=== PATIENT | female | born 1980 | race American Indian/Alaskan Native ===

== ENCOUNTER 2018-11-17 19:04 | Emergency (ER) | payer SELFPAY ==
[2018-11-17] MEDS ORDERED: NACL 0.9% 1000 ML 1,000 ML IV ONE (19:55)
--- NOTE | 2018-11-17 19:55 | Emergency Department Report ---
ED Psych HPI - General Chief Complaint: Psych Stated Complaint: SI/OD Time Seen by Provider: 11/17/18 19:43 Source: patient Mode of arrival: Stretcher - History of Present Illness Initial Comments: Mrs. Whitaker is a 38-year-old female who presents from [facility] for medical clearance. She intentionally overdose on prescription medication and yesterday. Her friend took her to the intake facility. She denies any pain. She does endorses depression. Gives limited history MD Complaint: suicidal ideation, feels depressed -: Last night Associated Psychiatric Symptoms: depression, suicidal ideation History of same: No Quality: constant Improves With: none Worsens With: none Context: other (patient will not give much information) Associated Symptoms: denies other symptoms Treatments Prior to Arrival: other (sent from [facility] for medical clearance) If Self Harm: has plan, has acted on plan - Related Data Home Medications Medication Instructions Recorded Confirmed Last Taken No Known Home Medications [No 11/17/18 11/17/18 Unknown Reported Home Medications] Allergies Allergy/AdvReac Type Severity Reaction Status Date / Time cherries, kiwi, and Allergy Rash Uncoded 11/17/18 19:44 [place] ED Review of Systems ROS: Stated complaint: SI/OD Other details as noted in HPI Comment: All other systems reviewed and negative Constitutional: denies: fever, malaise Respiratory: denies: cough Cardiovascular: denies: chest pain ED Past Medical Hx - Past Medical History Hx Psychiatric Treatment: No - Surgical History Hx Cholecystectomy: Yes - Social History Smoking Status: Never Smoker Substance Use Type: None - Medications Home Medications: Home Medications Medication Instructions Recorded Confirmed Last Taken Type No Known Home Medications [No 11/17/18 11/17/18 Unknown History Reported Home Medications] ED Physical Exam - General Limitations: No Limitations General appearance: alert, in no apparent distress - Head Head exam: Present: atraumatic, normocephalic - Eye Eye exam: Present: normal appearance - ENT ENT exam: Present: mucous membranes moist - Neck Neck exam: Present: normal inspection - Respiratory Respiratory exam: Present: normal lung sounds bilaterally. Absent: respiratory distress, wheezes, rales, rhonchi - Cardiovascular Cardiovascular Exam: Present: regular rate, normal rhythm, normal heart sounds. Absent: systolic murmur, diastolic murmur, rubs, gallop - GI/Abdominal GI/Abdominal exam: Present: soft, normal bowel sounds. Absent: distended, tenderness, guarding, rebound - Extremities Exam Extremities exam: Present: normal inspection - Back Exam Back exam: Present: normal inspection - Neurological Exam Neurological exam: Present: alert, oriented X3 - Psychiatric Psychiatric exam: Present: depressed, flat affect, suicidal ideation, other (poor insight evasive answers) - Skin Skin exam: Present: warm, dry, intact, normal color. Absent: rash ED Course Vital Signs 11/17/18 11/17/18 19:33 19:34 Temperature 98.4 F Pulse Rate 83 Respiratory 18 Rate Blood Pressure 117/80 O2 Sat by Pulse 100 Oximetry ED Medical Decision Making - Lab Data Result diagrams: 11/17/18 19:53 11/17/18 19:53 Laboratory Results - last 24 hr 11/17/18 11/17/18 11/17/18 19:53 19:53 19:53 WBC 8.1 RBC 4.14 Hgb 13.0 Hct 39.3 MCV 95 MCH 31 MCHC 33 RDW 14.7 Plt Count 248 Lymph % (Auto) 31.4 [place] % (Auto) 6.3 Eos % (Auto) 7.1 H Baso % (Auto) 0.4 Lymph # 2.5 [place] # 0.5 Eos # 0.6 H Baso # 0.0 Seg Neutrophils % 54.8 Seg Neutrophils # 4.4 Sodium 139 Potassium 3.7 Chloride 103.9 Carbon Dioxide 21 L Anion Gap 18 BUN 8 Creatinine 0.7 Estimated GFR > 60 BUN/Creatinine Ratio 11 Glucose 70 Calcium 9.2 Total Bilirubin 0.70 AST 13 ALT 11 Alkaline Phosphatase 82 Total Protein 6.7 Albumin 3.9 Albumin/Globulin Ratio 1.4 TSH 1.080 HCG, Qual Salicylates Acetaminophen Plasma/Serum Alcohol 11/17/18 11/17/18 11/17/18 19:53 19:53 19:53 WBC RBC Hgb Hct MCV MCH MCHC RDW Plt Count Lymph % (Auto) [place] % (Auto) Eos % (Auto) Baso % (Auto) Lymph # [place] # Eos # Baso # Seg Neutrophils % Seg Neutrophils # Sodium Potassium Chloride Carbon Dioxide Anion Gap BUN Creatinine Estimated GFR BUN/Creatinine Ratio Glucose Calcium Total Bilirubin AST ALT Alkaline Phosphatase Total Protein Albumin Albumin/Globulin Ratio TSH HCG, Qual Salicylates < 0.3 L Acetaminophen < 5.0 L Plasma/Serum Alcohol < 0.01 11/17/18 19:53 WBC RBC Hgb Hct MCV MCH MCHC RDW Plt Count Lymph % (Auto) [place] % (Auto) Eos % (Auto) Baso % (Auto) Lymph # [place] # Eos # Baso # Seg Neutrophils % Seg Neutrophils # Sodium Potassium Chloride Carbon Dioxide Anion Gap BUN Creatinine Estimated GFR BUN/Creatinine Ratio Glucose Calcium Total Bilirubin AST ALT Alkaline Phosphatase Total Protein Albumin Albumin/Globulin Ratio TSH HCG, Qual Negative Salicylates Acetaminophen Plasma/Serum Alcohol - EKG Data 11/17/18 21:45 EKG obtained 2 NSR rate 80 bpm nl axis nl intervals No st elevation nonspecific T wave pattern - Medical Decision Making Mrs. Whitaker presents one day after intentional overdose of prescription pills. SHe is medically clear for psychiatric care. Placed on 1013 involuntary hold. Awaiting treatment recommendations from psychiatric team. Critical care attestation.: If time is entered above; I have spent that time in minutes in the direct care of this critically ill patient, excluding procedure time. ED Disposition Clinical Impression: Suicide attempt, Intentional drug overdose, Acute depression Disposition: DC/TX-70 ANOTHER TYPE HLTHCARE Is pt being admited?: No Does the pt Need Aspirin: No Condition: Stable
[2018-11-17 20:10] LABS: Basophils % (Auto) 0.4 % (0.0-1.8); Eosinophils # (Auto) 0.6 K/mm3 (0.0-0.4); Eosinophils % (Auto) 7.1 % (0.0-4.3); Hematocrit 39.3 % (30.3-42.9); Lymphocytes # (Auto) 2.5 K/mm3 (1.2-5.4); Lymphocytes % (Auto) 31.4 % (13.4-35.0); Mean Corpuscular HGB Conc 33 % (30-34); Mean Corpuscular Volume 95 fl (79-97); Monocytes # (Auto) 0.5 K/mm3 (0.0-0.8); Monocytes % (Auto) 6.3 % (0.0-7.3); Platelet Count 248 K/mm3 (140-440); Red Blood Count 4.14 M/mm3 (3.65-5.03); Red Cell Distribution Width 14.7 % (13.2-15.2)
[2018-11-17 21:07] LABS: Alanine Aminotransferase 11 units/L (7-56); Albumin 3.9 g/dL (3.9-5); BUN/Creatinine Ratio 11; Blood Urea Nitrogen 8 mg/dL (7-17); Calcium 9.2 mg/dL (8.4-10.2); Hemolysis Index 17
[2018-11-17 23:16] LABS: Bacteria,Urine 1+ /HPF (Negative); Bilirubin,Urine NEG (Negative); Blood,Urine NEG (Negative); Color,Urine Straw (Yellow); Mucus,Urine FEW /HPF; Protein,Urine <15 mg/dL mg/dL (Negative); Urobilinogen,Urine < 2.0 mg/dL (<2.0)
[2018-11-17 23:40] LABS: Amphetamine Screen,Urine PRESUMPTIVE NEGATIVE; Benzodiazepines Screen,Urine PRESUMPTIVE NEGATIVE; Cannabinoid Screen,Urine PRESUMPTIVE NEGATIVE; Cocaine Screen,Urine PRESUMPTIVE NEGATIVE; Methadone Screen,Urine PRESUMPTIVE NEGATIVE; Opiate Screen,Urine PRESUMPTIVE NEGATIVE
--- NOTE | 2018-11-18 11:04 | Consultation ---
History of Present Illness - Reason for Consult Consult date: 11/18/18 Reason for consult: Mental Health Evaluation Requesting physician: SARIAH REAGAN - Chief Complaint Chief complaint: "I am so stressed out" - History of Present Psychiatric Illness 38 yo.o. AA female who intentionally overdosed on several unknown pills she could not ID. Today the patient was calm, but sad during the assessment. She stated that she is having marital with her infidelity. Also, she stated that her father last year. She stated, "I 'm dealing with a lot." She stated that she was overwhelmed yesterday and decided to kill herself by overdosing on pills oi her "issues" can go away. She denies a previous suicide attempt nor a mental flo dx when asked. She rate her depression 7/10, with 10 being the worse. She denies HI's and AVH's. She would not confirm or deny SI's. She denies recreational drug use and alcohol consumption (etoh). Medications and Allergies Allergies Allergy/AdvReac Type Severity Reaction Status Date / Time cherries, kiwi, and Allergy Rash Uncoded 11/17/18 19:44 [place] Home Medications Medication Instructions Recorded Confirmed Last Taken Type No Known Home Medications [No 11/17/18 11/17/18 Unknown History Reported Home Medications] Past psychiatric history - Past Medical History Past Medical History: other (Preg x 3) Past Surgical History: cholecystectomy - past Psychiatric treatment and history psychiatric treatment history: Denies a psy hx and fam psy hx. - Social History Social history: lives with family Mental Status Exam - Vital signs Last Vital Signs Temp 98.2 F 11/18/18 08:04 Pulse 95 H 11/18/18 08:04 Resp 18 11/18/18 08:04 BP 130/96 11/18/18 08:04 Pulse Ox 97 11/18/18 08:04 - Exam Narrative exam: MSE: Appearance: calm Behavior: regular eye contact Speech: regular rate and tone Mood: withdrawn, sad Affect: congruent to mood Thought Process: circumstantial Thought Content: denies HI's and AVH's Motor Activity: ambulatory Cognition: A/O x3 Insight: variable to fair Judgment: poor Results Result Diagrams: 11/17/18 19:53 11/17/18 19:53 Abnormal lab results 11/17/18 11/17/1819 Range/Units 19:53 19:53 19:53 Eos % (Auto) 7.1 H (0.0-4.3) % Eos # 0.6 H (0.0-0.4) K/mm3 Carbon Dioxide 21 L (22-30) mmol/L Salicylates < 0.3 L (2.8-20.0) mg/dL Acetaminophen (10.0-30.0) ug/mL 11/17/18 Range/Units 19:53 Eos % (Auto) (0.0-4.3) % Eos # (0.0-0.4) K/mm3 Carbon Dioxide (22-30) mmol/L Salicylates (2.8-20.0) mg/dL Acetaminophen < 5.0 L (10.0-30.0) ug/mL All other labs normal. Assessment and Plan Assessment and plan: Impression: MDD, Severe Type. Family Dynakic issues. Complicated Grieving. Today the patient was calm, but sad during the assessment. Recommendation/Plan: Continue 101 and start Remeron 15 mg OI HS for sleep. Discussed possible suicidality/medication induced guy with the patient reference Remeron, she verbalized understanding. . Dispo: The patient was referred to inpatient psy services. Will staff with Dr. Alta Messina.
[2018-11-18] MEDS: REMERON PO SCH (22:03)
[2018-11-19] MEDS: REMERON PO SCH (22:07)
--- NOTE | 2018-11-20 12:46 | Progress Note ---
Subjective - Reason for Consult Consult date: 11/20/18 Reason for consult: Psychiatric Follow-up Evaluation - Chief Complaint Chief complaint: "I'm okay" Patient is a 38 yo.o. AA female who intentionally overdosed on several unknown pills she could not ID. Today the patient is calm, but sad during the assessment. She stated that she is having infidelity within her marriage. She verbalizes " I'm having a difficult time from my . He's cheating on me. My friend told me." Reports appropriate sleep and appetite with Remeron. Patient continues to endorse depressed mood. She denies SI/HI's, A/VH's, and delusions. Mental Status Exam - Vital signs Last Vital Signs Temp 98.4 F 11/20/18 07:30 Pulse 96 H 11/20/18 07:30 Resp 20 11/20/18 07:30 BP 123/74 11/20/18 07:30 Pulse Ox 100 11/20/18 07:30 - Exam Narrative exam: Mental Status Exam: Appearance: calm Behavior: regular eye contact Speech: regular rate and tone Mood: withdrawn, sad Affect: congruent to mood Thought Process: circumstantial Thought Content: denies HI's and AVH's Motor Activity: ambulatory Cognition: A/O x 3 Insight: variable to fair Judgment: poor Assessment and Plan Impression: MDD, Severe Type. Family Dynamic issues. Complicated Grieving. Today the patient is calm, but sad during the assessment. She denies SI/HI's, A/VH's, and delusions. Recommendation/Plan: 1. Continue 1013. 2. Continue Remeron 15 mg QHS for sleep. Discussed possible suicidality/medication induced guy with the patient reference Remeron, she verbalized understanding. Disposition: The patient was referred to inpatient psychiatric services. Will staff with Dr. Alta Messina.
[2018-11-20] MEDS: REMERON PO SCH (22:05)
--- NOTE | 2018-11-21 07:52 | Progress Note ---
Subjective - Reason for Consult Consult date: 11/19/18 Reason for consult: Psychiatry Follow-up - Chief Complaint Chief complaint: "I've been some thinking" This is a follow-up note for 11/19/2018 38 yo.o. AA female who intentionally overdosed on several unknown pills she could not ID. Today the patient was calm and cooperative during the assessment. She spoke about making a terrible mistake by taking several pills to kill herself. She stated that she spoke with friends and family about what she did. She is adamant that she will not be impulsive again and handle her crisis in a different way. She denies SI/HI's and AVH's. She denies any side effects of her medications. Mental Status Exam - Vital signs Last Vital Signs Temp 98.4 F 11/21/18 00:00 Pulse 90 11/21/18 00:00 Resp 18 11/21/18 00:00 BP 124/84 11/21/18 00:00 Pulse Ox 98 11/21/18 00:00 - Exam Narrative exam: MSE: Appearance: calm, cooperative Behavior: regular eye contact Speech: regular rate and tone Mood: "okay" Affect: congruent to mood Thought Process: circumstantial Thought Content: denies SI/HI's and AVH's Motor Activity: ambulatory Cognition: A/O x3 Insight: variable to fair Judgment: variable to fair Assessment and Plan Impression: MDD, Severe Type. Family Dynamic issues. Complicated Grieving. Today the patient was calm and cooperative during the assessment. Recommendation/Plan: Continue 1013 and start Remeron 15 mg PO HS for sleep. Discussed possible suicidality/medication induced guy with the patient reference Remeron, she verbalized understanding. Dispo: The patient was referred to inpatient psy services. Staffed with Dr. Alta Messina.
--- NOTE | 2018-11-21 09:19 | Progress Note ---
Subjective - Reason for Consult Consult date: 11/21/18 Reason for consult: Psychiatry Follow-up - Chief Complaint Chief complaint: "I miss my kids"" 38 yo.o. AA female who intentionally overdosed on several unknown pills she could not ID. Today the patient was somewhat emotional today during the assessment. She stated that she miss her kids and "hate" what she did prior to coming to the ER. She stated that her tried to contact her in the ER, b ut haven't spoken with him yet. She denies SI/HI's and AVH's. She denies any side effects of her medication. Mental Status Exam - Vital signs Last Vital Signs Temp 98.4 F 11/21/18 00:00 Pulse 90 11/21/18 00:00 Resp 18 11/21/18 00:00 BP 124/84 11/21/18 00:00 Pulse Ox 98 11/21/18 00:00 - Exam Narrative exam: MSE: Appearance: calm, cooperative Behavior: regular eye contact Speech: regular rate and tone Mood: somewhat emotional Affect: congruent to mood Thought Process: circumstantial Thought Content: denies SI/HI's and AVH's Motor Activity: ambulatory Cognition: A/O x3 Insight: fair Judgment: variable to fair Assessment and Plan Impression: MDD, Severe Type. Family Dynamic issues. Complicated Grieving. Today the patient was calm and cooperative during the assessment. Recommendation/Plan: Continue 1013 and Remeron 15 mg PO HS for sleep. Discussed possible suicidality/medication induced guy with the patient reference Remeron, she verbalized understanding. Dispo: The patient was accepted at [facility] inpatient psy services. Will staff with Dr. Alta Messina.
[2018-11-21] MEDS: REMERON PO SCH (22:05)
[2018-11-22 08:18] VITALS: BP 117/74
== END 2018-11-22 08:20 | disposition other institution (70) ==
LOC: ED 19:04 → EEVIPCON 19:04 → ED 11-22 08:20
DX: F32.9 Major depressive disorder, single episode, unspecified (principal); Z90.49 Acquired absence of other specified parts of digestive tract
CPT/HCPCS: 36415; 80053; 80307; 81001; 84443; 84703; 85025; 93005; 93010; 99285; G0480; J7030; 80320